=== PATIENT | female | born 1990 | race Caucasian/White ===

== ENCOUNTER 2017-03-07 16:47 | Inpatient (IN) | payer SELFPAY ==
[2017-03-07] MEDS ORDERED: Metoclopramide HCl 10 MG/2 ML VIAL ONE (17:37)
[2017-03-07] MEDS ORDERED: diphenhydrAMINE 50 MG/ML VIAL ONE (17:38)
[2017-03-07 17:42] LABS: #Basophils 0.1 thou/uL (0.0-0.2); #Eosinphils 0.1 thou/uL (0.0-0.7); #Lymphocytes 2.6 thou/uL (1.20-3.40); #Monocytes 0.6 thou/uL (0.11-0.59); #Neutrophils 7.4 thou/uL (1.40-6.50); %Basophils 0.9 % (0.0-1.0); %Eosinophils 0.5 % (0.0-10.0); %Lymphocytes 24.1 % (21.0-51.0); %Monocytes 5.3 % (0.0-10.0); Hematocrit 48.8 % (36.0-47.0); Mean Platelet Volume 8.8 fL (7.4-10.4); Red Blood Cell (RBC) Count 5.12 mill/uL (4.20-5.40); White Blood Cell (WBC) Count 10.6 thou/uL (4.8-10.8)
[2017-03-07 17:59] LABS: Lactic Acid - Sepsis 1.9 mmol/L (0.5-2.2)
[2017-03-07 18:01] LABS: BUN (Urea Nitrogen) 17 mg/dL (7.0-18.7); Calc. Creatinine Clearance 0 mL/min (70-130); Calcium 9.7 mg/dL (7.8-10.44); Chloride 96 mmol/L (98-107); Estimated GFR-MDRD 34
[2017-03-07] MEDS ORDERED: Morphine 4 MG/ML VIAL ONE (18:03)
[2017-03-07] MEDS ORDERED: Lorazepam 2 MG/ML VIAL ONE (18:03)
[2017-03-07] MEDS ORDERED: Ondansetron HCl/PF 4 MG/2 ML Vial ONE (18:04)
[2017-03-07] MEDS ORDERED: Dexamethasone 10 MG/ML VIAL ONE (18:04)
[2017-03-07 18:09] LABS: Carbon Dioxide Less than 8 mmol/L (22-29)
[2017-03-07] MEDS ORDERED: Lidocaine 1% (PF) 30 ML VIAL ONE (18:22)
[2017-03-07] MEDS ORDERED: Insulin Regular 300 UNITS/3 ML VIAL ONE (18:25)
[2017-03-07] MEDS ORDERED: Insulin Regular 100 units/100 ml in NS IVPB SCH (18:45)
[2017-03-07] MEDS ORDERED: cefTRIAXone\\ROCEPHIN 500 MG VIAL ONE (19:15)
[2017-03-07 19:49] LABS: CSF, Glucose 347 mg/dl (40-70)
--- NOTE | 2017-03-07 21:13 | CT ---
CT HEAD NONCONTRAST 03/07/17 HISTORY: Headache. Fever. FINDINGS: No comparison. There is no evidence of acute intracranial hemorrhage or infarct. The ventricles appear normal in si ze, shape, and position. There is no mass effect or shift of midline structures. The visualized para nasal sinuses remain well aerated. IMPRESSION: No acute intracranial abnormalities are demonstrated on noncontrast CT head. POS: [facility]
[2017-03-07 21:40] LABS: Sodium 141 mmol/L (135-148)
[2017-03-07 21:41] LABS: Mode RA; Modified Allen's Test POSITIVE; Vent NO
[2017-03-07] MEDS ORDERED: Ondansetron ODT 4 MG TAB SL PRN (22:25)
[2017-03-07] MEDS ORDERED: Acetaminophen 325 MG TAB PO PRN (22:25)
[2017-03-07] MEDS ORDERED: Ondansetron HCl/PF 4 MG/2 ML Vial IVP PRN (22:25)
[2017-03-07] MEDS ORDERED: Sodium Chloride 0.9% 1,000 ML IV PRN ×4 (22:27)
[2017-03-07] MEDS ORDERED: Dextrose 5% in Water 1,000 ML IV PRN (22:27)
[2017-03-07] MEDS ORDERED: Dextrose 5 %-0.45 % NaCl 1,000 ML IV PRN (22:27)
[2017-03-07] MEDS ORDERED: NS 0.9% w/ 20 MEQ KCL 1,000 ML/1,000 ML BAG IV PRN ×2 (22:27)
[2017-03-07] MEDS ORDERED: Potassium Phosphate 12 MMOL in Sodium Chloride 0.9% 250 ML 250 ML IV PRN (22:28)
[2017-03-07] MEDS ORDERED: Magnesium Oxide 400 MG TAB PO PRN ×2 (22:28)
[2017-03-07] MEDS ORDERED: Potassium Phosphate 15 MMOL in Sodium Chloride 0.9% 250 ML 250 ML IV PRN (22:28)
[2017-03-07] MEDS ORDERED: Potassium Chloride 20 MEQ TAB PO PRN (22:28)
[2017-03-07] MEDS ORDERED: Potassium Chloride 40 MEQ in Premix Bag 1 BAG IVPB PRN (22:28)
[2017-03-07] MEDS ORDERED: CCU ELECTROLYTE REPLACEMENT PROTOCOL FS PRN (22:28)
[2017-03-07] MEDS ORDERED: Potassium Chloride 40 MEQ in Sodium Chloride 0.9% 250 ML 250 ML IVPB PRN (22:28)
[2017-03-07] MEDS ORDERED: Dextrose 50% Abboject 50 ML SYRINGE SLOW IVP PRN (22:28)
[2017-03-07] MEDS ORDERED: Potassium Phosphate 9 MMOL in Sodium Chloride 0.9% 100 ML IVPB PRN (22:28)
[2017-03-07] MEDS ORDERED: Magnesium 2 GM/NS 0.9% 100 ML 2 GM in Premix Bag 1 BAG IVPB PRN (22:28)
[2017-03-07] MEDS ORDERED: ADD ELECTROLYTE REPLACEMENT SET TO PROFILE FS SCH (22:30)
--- NOTE | 2017-03-07 22:55 | PDOC.EVN ---
Event Note - Event Note Event Note: [id number] 1. DKA 2. Anion gap metabolic acidosi 3. Hyperkalemia 4. AUGUST plan: see orders
[2017-03-07 23:04] VITALS: BMI 25.4
[2017-03-07 23:26] LABS: BUN (Urea Nitrogen) 13 mg/dL (7.0-18.7); Calc. Creatinine Clearance 69 mL/min (70-130); Calcium 7.9 mg/dL (7.8-10.44); Carbon Dioxide Less than 8 mmol/L (22-29); Chloride 114 mmol/L (98-107); Estimated GFR-MDRD 50
[2017-03-07] MEDS: D5 1/2 NS w/20 mEq KCL 1,000 ML IV PRN (23:28)
[2017-03-07] MEDS: Sodium Chloride 0.9% 1,000 ML IV SCH (23:44)
[2017-03-08] MEDS: D5 1/2 NS w/20 mEq KCL 1,000 ML IV PRN ×3 (02:47→20:22)
[2017-03-08 03:09] LABS: Anion Gap 15 mmol/L (10-20); BUN (Urea Nitrogen) 12 mg/dL (7.0-18.7); Calc. Creatinine Clearance 90 mL/min (70-130); Calcium 8.1 mg/dL (7.8-10.44); Carbon Dioxide 10 mmol/L (22-29); Chloride 115 mmol/L (98-107); Estimated GFR-MDRD 69
[2017-03-08] MEDS: Sodium Chloride 0.9% 1,000 ML IV SCH (03:22)
--- NOTE | 2017-03-08 08:31 | HP ---
DATE OF ADMISSION: 03/07/2017 CHIEF COMPLAINT: Headache, nausea, vomiting. HISTORY OF PRESENT ILLNESS: The patient is a 26-year-old woman started having headache yesterday, states is all over the head heading towards the neck, constant, [id number] in intensity. She denies any weakness. Denies any numbness, tingling. Complains of numerous episodes of nausea and vomiting since yesterday. Denies any blood in the vomit. Denies any abdominal pain, denies any diarrhea, denies any chest pain, denies any trouble breathing, denies any dizziness, denies any fever, denies any chills. PAST MEDICAL HISTORY: Diabetes mellitus type I. MEDICATIONS: Patient did take her Levemir insulin last night, 26 units. SOCIAL HISTORY: Denies smoking, denies alcohol, denies any drugs. FAMILY HISTORY: Positive for heart problems. REVIEW OF SYSTEMS: Constitutional: Denies any fever, denies any chills. Eyes : Denies any vision problems. Ears: Denies any hearing loss. Neck: Positive for neck pain. Cardiovascular: Denies any chest pain. Denies any palpations. Respiratory: Denies any cough. Denies sputum production. Gastrointestinal: Denies any abdominal pain. Positive for nausea and vomiting. Cranial nerves system: Denies syncope, denies lightheadedness. Psychiatric: Denies anxiety. Integument: Denies any rash. All other systems are reviewed and are negative. PHYSICAL EXAMINATION: CONSTITUTIONAL/VITAL SIGNS: At the time of H and P performed, blood pressure is 128/60, temperature 98.6, heart rate 118. GENERAL: The patient appears comfort, tired. Anterior nares patent. NECK: Supple, no JVD. Able to move the neck. No meningeal signs. CARDIOVASCULAR SYSTEM: S1, S2 present, tachycardic. No murmurs, no rubs, no gallops. RESPIRATORY SYSTEM: No wheezing, no rhonchi. Breath sound bilaterally. GASTROINTESTINAL: Abdomen is soft, nontender, no guarding, no organomegaly, no masses felt. MUSCULOSKELETAL: No edema. CRANIAL NERVOUS SYSTEM: Awake, follows commands. Strength intact, sensory intact. PSYCHIATRIC: Mood is appropriate at this time. LABORATORY DATA: At the time of H and P performed, white count 10.6, hemoglobin 16.4, platelet count is 357. ABG showed pH 7.13, pCO2 is 13, pO2 is 138, BMP showed sodium 130, potassium 5.2, chloride 96, bicarbonate less than 8, BUN 17, creatinine 1.82. Urine specific gravity 1.026. ASSESSMENT AND PLAN: The patient is a 26-year-old female, 1. Diabetic ketoacidosis. Plan to start the patient on diabetic ketoacidosis insulin protocol. Plan to monitor the patient closely. We will start the patient on intravenous fluids. We will monitor the patient closely. 2. Hyperkalemia, mild. We will monitor potassium levels closely. 3. Acute kidney injury. Monitor creatinine closely. IV fluids. Repeat BMP in a.m. 4. Severe anion gap metabolic acidosis. Monitor bicarbonate level closely. 5. Headache. The patient did had lumbar puncture done in the ER . No obvious infection. CT head was also done in the ER, no acute bleed seen. Headache might be secondary to the severe acidosis. Also, we will monitor the patient closely. The case was discussed in detail with the patient. TRAIK
--- NOTE | 2017-03-08 08:31 | CON ---
DATE OF CONSULTATION: 03/08/2017 HISTORY: This is a 26-year-old female with type 1 diabetes who in the last 24 hours developed a hea dache, frontal, with apparently nausea and vomiting. She denied any obvious chills, though she said might have had fever. Denies any difficulty breathing, shortness of breath. The brought h er to the ER after Tylenol did not help her. CT head was done and was negative. Spinal tap was don e which shows normal protein and glucose with 1 WBCs. Findings are not consistent with meningitis. This morning she is better. She is a nonsmoker. No h istory of pneumonia, asthma or TB. PAST MEDICAL HISTORY: Pertinent for type 1 diabetes. PAST SURGICAL HISTORY: x2. Surgery on the right fourth finger. MEDICATIONS: Chronic medications from home includes insulin, Levemir 26 units and Humalog as needed . ALLERGIES: None. REVIEW OF SYSTEMS: Unremarkable. PHYSICAL EXAMINATION: GENERAL: She is awake, alert, responsive. VITAL SIGNS: Temperature 98, blood pressure 95/36, respirations 18. CHEST: Chest revealed decreased breath sounds, no wheezing. CARDIAC: Normal S1, S2. ABDOMEN: Soft. No masses. Electrolytes are normal. Blood sugar 196, she is on insulin drip. White count 10,000, H\T\H 16 and 40, platelet count normal. IMPRESSION: 1. Probably viral syndrome, no evidence of meningitis. 2. Diabetes. PLAN: I will switch her over to home medication insulin-tate. She can transfer out of the ICU. I will follow while in the ICU. Symptomatic relief for headache.
[2017-03-08] MEDS ORDERED: FLU VACC QS2017-18 36 mo. & older 0.5 ML SYRINGE IM ONE (09:00)
--- NOTE | 2017-03-08 16:22 | PDOC.PN ---
- Subjective Encounter Start Date: 03/08/17 Encounter Start Time: 16:21 Patient seen and examined. No new complaints. No overnight events - Objective MAR Reviewed: Yes Vital Signs & Weight: Vital Signs (12 hours) Temp Pulse Resp BP Pulse Ox 03/08/17 15:55 97.5 F L 93 17 113/85 100 03/08/17 13:00 98.7 F 03/08/17 08:00 98.5 F 82 15 100 Most Recent Monitor Data Heart Rate from ECG 87 NIBP 106/70 NIBP BP-Mean 72 Respiration from ECG 10 SpO2 100 I&O: 03/07/17 03/08/17 03/09/17 06:59 06:59 06:59 Intake Total 1527.8 2690 Output Total 500 1150 Balance 1027.8 1540 Result Diagrams: 03/07/17 17:05 03/08/17 02:45 Additional Labs: Accuchecks 03/08/17 03/08/17 03/08/17 15:55 14:49 13:36 POC Glucose 195 H 187 H 186 H 03/08/17 03/08/17 03/08/17 12:41 11:35 10:27 POC Glucose 154 H 134 H 146 H 03/08/17 03/08/17 03/08/17 09:31 08:24 07:34 POC Glucose 157 H 161 H 196 H 03/08/17 03/08/17 03/08/17 06:17 05:07 03:47 POC Glucose 205 H 201 H 186 H 03/08/17 03/08/17 03/08/17 02:45 01:28 00:24 POC Glucose 170 H 162 H 124 H 03/07/17 03/07/17 03/07/17 23:18 22:37 21:33 POC Glucose 125 H 189 H 253 H Phys Exam - Physical Examination Constitutional: NAD HEENT: PERRLA Neck: no JVD Respiratory: no wheezing Cardiovascular: no significant murmur Gastrointestinal: non-tender Musculoskeletal: pulses present Neurological: moves all 4 limbs Psychiatric: A&O x 3 Dx/Plan (1) DKA (diabetic ketoacidoses) Code(s): E13.10 - OTH DIABETES MELLITUS WITH KETOACIDOSIS WITHOUT COMA Status : Acute (2) Diabetes mellitus Code(s): E11.9 - TYPE 2 DIABETES MELLITUS WITHOUT COMPLICATIONS Status: Acute (3) Nausea & vomiting Code(s): R11.2 - NAUSEA WITH VOMITING, UNSPECIFIED Status: Acute (4) Headache Code(s): R51 - HEADACHE Status: Acute - Plan * cont mx per protocol * f/u bmp * symptomatic rx for nausea
[2017-03-08 17:09] LABS: Anion Gap 13 mmol/L (10-20); BUN (Urea Nitrogen) 6 mg/dL (7.0-18.7); Calc. Creatinine Clearance 94 mL/min (70-130); Calcium 8.6 mg/dL (7.8-10.44); Carbon Dioxide 14 mmol/L (22-29); Chloride 111 mmol/L (98-107); Estimated GFR-MDRD 72
[2017-03-08 21:07] LABS: Anion Gap 11 mmol/L (10-20); BUN (Urea Nitrogen) 4 mg/dL (7.0-18.7); Calc. Creatinine Clearance 100 mL/min (70-130); Calcium 8.4 mg/dL (7.8-10.44); Carbon Dioxide 14 mmol/L (22-29); Chloride 115 mmol/L (98-107); Estimated GFR-MDRD 78
[2017-03-08] MEDS ORDERED: Dextrose 5% in Water 1,000 ML IV PRN (21:36)
[2017-03-08] MEDS ORDERED: HumaLOG 300 UNITS/3 ML VIAL SC PRN ×2 (21:36)
[2017-03-08] MEDS ORDERED: Dextrose 50% Abboject 50 ML SYRINGE SLOW IVP PRN (21:36)
[2017-03-08] MEDS ORDERED: Insulin Detemir 100 UNITS/ML 10 UNITS in Pre-Filled Syringe 1 EACH SC SCH (21:45)
[2017-03-08] MEDS ORDERED: Acetaminophen 500 MG TAB PO PRN (23:12)
[2017-03-09] MEDS: D5 1/2 NS w/20 mEq KCL 1,000 ML IV PRN (04:15)
[2017-03-09 04:49] LABS: #Eosinphils 0.1 thou/uL (0.0-0.7); #Lymphocytes 2.5 thou/uL (1.20-3.40); #Monocytes 0.3 thou/uL (0.11-0.59); #Neutrophils 3.1 thou/uL (1.40-6.50); %Basophils 0.5 % (0.0-1.0); %Eosinophils 1.1 % (0.0-10.0); %Lymphocytes 42.1 % (21.0-51.0); %Monocytes 5.4 % (0.0-10.0); Hematocrit 33.6 % (36.0-47.0); Mean Platelet Volume 7.8 fL (7.4-10.4); Red Blood Cell (RBC) Count 3.57 mill/uL (4.20-5.40)
[2017-03-09 05:00] LABS: Anion Gap 11 mmol/L (10-20); BUN (Urea Nitrogen) 4 mg/dL (7.0-18.7); BUN/Creatinine Ratio 4.88; Calc. Creatinine Clearance 109 mL/min (70-130); Calcium 8.2 mg/dL (7.8-10.44); Carbon Dioxide 15 mmol/L (22-29); Chloride 116 mmol/L (98-107); Estimated GFR-MDRD 86
[2017-03-09 05:06] LABS: Phosphorus 1.5 mg/dL (2.3-4.7)
--- NOTE | 2017-03-09 08:23 | PRG ---
DATE OF SERVICE: 03/09/2017 SUBJECTIVE: This morning, awake, alert, responsive, no headache, no shortness of breath. No fever. PHYSICAL EXAMINATION: VITAL SIGNS: Blood pressure 113/78, sats 98% on room air, temperature 97, respirations 16, pulse 76. CHEST: No wheezing or crackles. CARDIAC: Normal S1, S2. ABDOMEN: Soft, no masses. LABORATORY DATA: White count 6000, H&H 11 and 33, platelet count is normal. Electrolytes are normal . Blood sugar 230. IMPRESSION: 1. Headache, no evidence of meningitis or encephalitis. 2. Diabetes. PLAN: She probably can be discharged home today. Follow with her primary care physician.
[2017-03-09] MEDS ORDERED: Sodium Chloride 0.45% 1,000 ML IV SCH (11:45)
[2017-03-09 12:58] LABS: Anion Gap 10 mmol/L (10-20); BUN (Urea Nitrogen) 4 mg/dL (7.0-18.7); Calc. Creatinine Clearance 106 mL/min (70-130); Calcium 9.2 mg/dL (7.8-10.44); Carbon Dioxide 18 mmol/L (22-29); Chloride 110 mmol/L (98-107); Estimated GFR-MDRD 83
[2017-03-09] MEDS ORDERED: PRE FILLED SC SCH ×2 (13:15→21:00)
[2017-03-09] MEDS ORDERED: INSULIN DETEMIR SC SCH ×2 (13:15→21:00)
--- NOTE | 2017-03-09 13:49 | PDOC.PN ---
- Subjective Encounter Start Date: 03/09/17 Encounter Start Time: 13:48 Patient seen and examined. No new complaints. No overnight events - Objective MAR Reviewed: Yes Vital Signs & Weight: Vital Signs (12 hours) Temp Pulse Resp BP Pulse Ox 03/09/17 11:13 98.2 F 84 14 124/77 100 03/09/17 07:57 97.9 F 76 14 99 03/09/17 07:10 97.9 F 76 14 113/78 100 03/09/17 03:03 97.7 F 90 17 104/59 L 99 Most Recent Monitor Data Heart Rate from ECG 87 NIBP 106/70 NIBP BP-Mean 72 Respiration from ECG 10 SpO2 100 I&O: 03/08/17 03/09/17 03/10/17 06:59 06:59 06:59 Intake Total 1527.8 7646 Output Total 500 1150 Balance 1027.8 6496 Result Diagrams: 03/09/17 04:08 03/09/17 12:29 Additional Labs: Accuchecks 03/09/17 03/09/17 03/09/17 11:15 07:04 04:11 POC Glucose 295 H 173 H 204 H 03/08/17 03/08/17 03/08/17 22:05 21:12 20:15 POC Glucose 127 H 146 H 160 H 03/08/17 03/08/17 03/08/17 19:11 18:49 17:52 POC Glucose 188 H 196 H 212 H 03/08/17 03/08/17 03/08/17 17:01 15:55 14:49 POC Glucose 241 H 195 H 187 H 03/08/17 03/08/17 13:36 09:31 POC Glucose 186 H 157 H Phys Exam - Physical Examination Constitutional: NAD HEENT: PERRLA Neck: no JVD Respiratory: no rales Cardiovascular: no significant murmur Gastrointestinal: non-tender Musculoskeletal: pulses present Neurological: moves all 4 limbs Psychiatric: A&O x 3 Dx/Plan (1) DKA (diabetic ketoacidoses) Code(s): E13.10 - OTH DIABETES MELLITUS WITH KETOACIDOSIS WITHOUT COMA Status : Acute (2) Diabetes mellitus Code(s): E11.9 - TYPE 2 DIABETES MELLITUS WITHOUT COMPLICATIONS Status: Acute (3) Nausea & vomiting Code(s): R11.2 - NAUSEA WITH VOMITING, UNSPECIFIED Status: Acute (4) Headache Code(s): R51 - HEADACHE Status: Acute - Plan * doing good * d/c home *
[2017-03-09 13:54] VITALS: BP 121/75; TEMP 98.1
[2017-03-09] MEDS ORDERED: Non-Formulary Item 1 EACH (Levemir Flexpen [Levemir Flexpen] 26 UNIT) SC SCH (21:00)
--- NOTE | 2017-03-09 22:00 | DIS ---
DATE OF ADMISSION: 03/07/2017 DATE OF DISCHARGE: 03/09/2017 DISCHARGE DIAGNOSES: Diabetic ketoacidosis, resolved; diabetes mellitus type 1, stable, controlled; hyperkalemia, resolved; acute kidney injury, resolved; headache, resolved. DISCHARGE MEDICATIONS: The patient's discharge medications are the same as admit medications. CONSULTANTS ON THE CASE: [employer]. BRIEF HOSPITAL COURSE: A 26-year-old pleasant lady came into the hospital with headache, nausea, and vomiting. She had an LP, which was negative. CT head was negative. She was put on DKA protocol. The ketoacidosis was resolved with this. She is right now transitioned to her home medications, home dose of insulin. She is eating well. She is right now medically stable to be discharged with outpa tient followup with her PCP. She is asked to come back to the emergency room in case symptoms recur. Total time for this discharge took 35 minutes.
== END 2017-03-09 14:55 | disposition home or self-care (01) | DRG 638 ==
LOC: ERS 16:47 → CCU 21:12 → IMCU/EMU 03-08 15:11 → T4-A 03-09 13:26
PROVIDERS: ADMIT Internal Medicine; ATTEND Internal Medicine
PROC: 009U3ZX Drainage of Spinal Canal, Percutaneous Approach, Diagnostic (ICD-10-PCS; principal; 2017-03-07)
DX: E10.10 Type 1 diabetes mellitus with ketoacidosis without coma (principal); N17.9 Acute kidney failure, unspecified; E87.5 Hyperkalemia; Z79.4 Long term (current) use of insulin; Z23 Encounter for immunization; R51 Headache
CPT/HCPCS: 36415; 36416; 62270; 70450; 80048; 80069; 81025; 82805; 82945; 83605; 83735; 84157; 84703; 85025; 87070; 87205; 89051; 90471; 90682; 93005; 96365; 96366; 96367; 96374; 96375; 96376; G0008; J0696; J1100; J1200; J1815; J2001; J2060; J2270; J2405; J2765; J7050; Q2036

== ENCOUNTER 2017-06-12 14:59 | Emergency (ER) | payer OTHER, SELFPAY | END 2017-06-12 17:09 | disposition home or self-care (01) | LOC: ERS 14:59 | DX: E10.649 Type 1 diabetes mellitus with hypoglycemia without coma (principal) | CPT/HCPCS: 36416; 99285 ==

== ENCOUNTER 2018-06-13 18:35 | Emergency (ER) | payer OTHER, SELFPAY ==
[2018-06-13 19:28] LABS: #Eosinphils 0.1 thou/uL (0.0-0.7); #Lymphocytes 1.1 thou/uL (1.20-3.40); #Monocytes 0.5 thou/uL (0.11-0.59); %Basophils 0.8 % (0.0-1.0); %Eosinophils 2.3 % (0.0-10.0); %Lymphocytes 31.1 % (21.0-51.0); %Monocytes 12.4 % (0.0-10.0); %Neutrophils 53.3 % (42.0-75.0); Hemoglobin 12.4 g/dL (12.0-16.0); Mean Corpuscular HGB CONC 33.1 g/dL (32.0-36.0); Mean Corpuscular Hemoglobin 28.2 pg (27.0-31.0); Mean Corpuscular Volume 85.2 fL (78.0-98.0); Mean Platelet Volume 8.1 fL (7.4-10.4); Platelet Count 250 thou/uL (130-400); RBC Distribution Width 13.1 % (11.5-14.5); White Blood Cell (WBC) Count 3.7 thou/uL (4.8-10.8)
[2018-06-13 19:49] LABS: ALT (SGPT) 11 U/L (8-55); AST (SGOT) 11 U/L (5-34); Albumin 4.2 g/dL (3.5-5.0); Alkaline Phosphatase 92 U/L (40-150); Anion Gap 11 mmol/L (10-20); BUN (Urea Nitrogen) 18 mg/dL (7.0-18.7); Bilirubin, Total 1.3 mg/dL (0.2-1.2); Calc. Creatinine Clearance 0 mL/min (70-130); Calcium 9.5 mg/dL (7.8-10.44); Carbon Dioxide 23 mmol/L (22-29); Chloride 105 mmol/L (98-107); Estimated GFR-MDRD 56; Glucose 336 mg/dL (70-105); Potassium 4.1 mmol/L (3.5-5.1); Protein, Total 7.2 g/dL (6.0-8.3); Sodium 135 mmol/L (136-145)
== END 2018-06-13 21:30 | disposition home or self-care (01) ==
LOC: ERS 18:35
DX: E10.65 Type 1 diabetes mellitus with hyperglycemia (principal); E86.0 Dehydration
CPT/HCPCS: 36415; 36416; 80053; 82010; 83735; 84100; 85025; 96360; 96361

== ENCOUNTER 2021-03-02 11:43 | Emergency (ER) | payer OTHER, SELFPAY ==
[2021-03-02 12:40] LABS: Actual Bicarbonate (HCO3v) 17 mEq/L (22-28); Analyzer IN Cardio ER; Base Excess -6.2 mEq/L (-2.0 to +3.0); Calcium, Ionized (venous) 1.13 mmol/L (1.16-1.32); Chloride (VBG) 107 mmol/L (98-106); Potassium (VBG) 4.84 mmol/L (3.70-5.30); Sodium 135.1 mmol/L (133-146); pH (venous) 7.39 (7.32-7.43)
[2021-03-02 12:48] LABS: #Lymphocytes 1.9 thou/uL (1.20-3.40); #Monocytes 0.4 thou/uL (0.11-0.59); #Neutrophils 4.9 thou/uL (1.40-6.50); %Basophils 0.4 % (0.0-1.0); %Eosinophils 0.3 % (0.0-10.0); %Lymphocytes 25.7 % (21.0-51.0); %Neutrophils 67.5 % (42.0-75.0); Hemoglobin 14.3 g/dL (12.0-16.0); Mean Corpuscular HGB CONC 33.8 g/dL (32.0-36.0); Mean Corpuscular Volume 91.7 fL (78.0-98.0); Mean Platelet Volume 8.1 fL (7.4-10.4); Platelet Count 243 thou/uL (130-400); RBC Distribution Width 11.5 % (11.5-14.5); Red Blood Cell (RBC) Count 4.62 mill/uL (4.20-5.40); White Blood Cell (WBC) Count 7.3 thou/uL (4.8-10.8)
[2021-03-02] MEDS ORDERED: cefTRIAXone\\ROCEPHIN 1 GM VIAL ONE (13:03)
[2021-03-02 13:04] LABS: ALT (SGPT) 13 U/L (8-55); AST (SGOT) 14 U/L (5-34); Albumin 4.3 g/dL (3.5-5.0); Alkaline Phosphatase 116 U/L (40-110); Anion Gap 15 mmol/L (10-20); BUN (Urea Nitrogen) 12 mg/dL (7.0-18.7); Bilirubin, Total 0.6 mg/dL (0.2-1.2); Calc. Creatinine Clearance 0 mL/min (70-130); Calcium 9.8 mg/dL (7.8-10.44); Carbon Dioxide 17 mmol/L (22-29); Chloride 108 mmol/L (98-107); Globulin 3.5 g/dL (2.4-3.5); Glucose 180 mg/dL (70-105); Potassium 4.5 mmol/L (3.5-5.1); Protein, Total 7.8 g/dL (6.0-8.3); Sodium 135 mmol/L (136-145)
[2021-03-02 14:32] LABS: Bacteria/HPF 3+ HPF (None Seen); Bilirubin Negative (Negative); Blood, Urine Trace (Negative); Clarity Turbid (Clear); Glucose, Urine (Dipstick) 50 mg/dL (Negative); Ketone, Urine Negative (Negative); Leukocyte 500 Leu/uL (Negative); Nitrite Negative (Negative); Protein, Urine (Dipstick) 20 mg/dL (Neg-Trace); Specific Gravity, Urine 1.015 (1.002-1.036); Squamous Epithelial 0-3 HPF (0-3); Urobilinogen Normal mg/dL (Less than 2); WBC/HPF Greater than 50 HPF (0-3)
[2021-03-02 14:40] LABS: Pregnancy Test - Urine (BHCG) Negative (Negative); Specific Gravity 1.015 (1.002-1.036)
[2021-03-02 14:41] LABS: Pregu Control Background? CLEAR/WHITE (CLR/WHITE); Pregu Control Bar Appear? YES (CONTROL BAR)
== END 2021-03-02 14:56 | disposition home or self-care (01) ==
LOC: ERS 11:43
DX: N39.0 Urinary tract infection, site not specified (principal); E10.9 Type 1 diabetes mellitus without complications
CPT/HCPCS: 36415; 36416; 80053; 81003; 81015; 81025; 82010; 82805; 85025; 87077; 87086; 87186; 96365; 96366; J0696

== ENCOUNTER 2021-07-01 11:41 | Emergency (ER) | payer OTHER, SELFPAY | END 2021-07-01 13:30 | disposition home or self-care (01) | LOC: ERS 11:41 | DX: B34.9 Viral infection, unspecified (principal); E10.9 Type 1 diabetes mellitus without complications; Z79.4 Long term (current) use of insulin | CPT/HCPCS: 87804; 99283 ==